=== PATIENT | male | born 1995 | race Caucasian/White ===

== ENCOUNTER 2023-03-31 20:01 | Emergency (ER) | payer SELFPAY ==
[2023-03-31] MEDS ORDERED: Sodium Chloride 0.9% 1,000 ML IV SCH (21:00)
[2023-03-31 21:32] LABS: BASOPHILS PERCENT AUTO 0.9 % (0.0-1.0); HEMATOCRIT 47.8 % (42.0-52.0); HEMOGLOBIN 15.7 gm/dl (14.0-18.0); IMMATURE GRAN ABSOLUTE AUTO 0.01 K/mm3 (0.00-0.05); IMMATURE GRAN PERCENT AUTO 0.3 % (0.0-0.4); LYMPHOCYTES ABSOLUTE AUTO 0.8 K/mm3 (1.0-4.8); LYMPHOCYTES PERCENT AUTO 24.7 % (24.0-44.0); MEAN CORPUSCULAR HGB CONC 32.8 g/dl (32.0-36.0); MEAN CORPUSCULAR VOLUME 88.4 fl (83.0-99.0); MEAN PLATELET VOLUME 9.4 fl (9.4-12.4); MONOCYTES ABSOLUTE AUTO 0.6 K/mm3 (0.0-0.8); MONOCYTES PERCENT AUTO 17.6 % (0.0-8.0); NEUTROPHILS ABSOLUTE AUTO 1.9 K/mm3 (1.8-7.7); NEUTROPHILS PERCENT AUTO 56.5 % (41.0-71.0); PLATELET COUNT,PLT 190 K/mm3 (150-400); RED BLOOD CELL COUNT 5.41 M/mm3 (4.52-5.90)
[2023-03-31 22:03] LABS: A/G RATIO 1.2 (1-2); ALANINE AMINOTRANSFERASE,ALT 12 U/L (16-63); ALBUMIN 4.2 g/dl (3.4-5.0); ALKALINE PHOSPHATASE 285 U/L (46-116); ASPARTATE AMNIOTRANSFERASE,AST 22 U/L (15-37); BILIRUBIN TOTAL 0.2 mg/dL (0.2-1.0); BLOOD UREA NITROGEN,BUN 9 mg/dL (7-18); BUN/CREATININE RATIO 11.3 (14-18); CALCIUM 8.7 mg/dL (8.5-10.1); CARBON DIOXIDE,CO2 21 mEq/L (21-32); CHLORIDE,CL 102 mEq/L (98-107); CREATININE 0.8 mg/dL (0.7-1.3); EST CRCL DRUG DOSING (CG) 133.48 mL/min; ESTIMATED GFR 124 mL/min (>60); GLUCOSE RANDOM 90 mg/dL (70-99); PROTEIN TOTAL,TP 7.7 g/dl (6.4-8.2); SODIUM,NA 139 mEq/L (136-145); T4 FREE 1.18 ng/dL (0.76-1.46)
[2023-03-31 22:15] LABS: INFLUENZA A NAA NEGATIVE (NEGATIVE); RESPIRATORY SYNCYTIAL VIR NAA NEGATIVE (NEGATIVE)
[2023-03-31 22:24] LABS: TSH < 0.007 uIU/mL (0.358-3.74)
[2023-03-31 22:31] LABS: CORONAVIRUS COVID-19 NAA POSITIVE (NEGATIVE)
[2023-03-31] MEDS ORDERED: Acetaminophen 325 MG Tab PO ONE (22:49)
== END 2023-04-01 01:02 | disposition home or self-care (01) ==
LOC: JD.ED 20:01
DX: U07.1 COVID-19 (principal); R74.8 Abnormal levels of other serum enzymes; F17.210 Nicotine dependence, cigarettes, uncomplicated
CPT/HCPCS: 0241U; 36415; 80053; 84439; 84443; 85025; 87651-QW; 96360; 99283-25; A9270-GY; J7030

== ENCOUNTER 2023-04-27 19:12 | Emergency (ER) | payer SELFPAY ==
[2023-04-27] MEDS ORDERED: methylPREDNISolone Sodium Succinate 125 MG/2 ML SDV IVPUSH ONE (19:18)
[2023-04-27] MEDS ORDERED: EPINEPHrine 1 MG/ML SDV SUBCUT ONE (19:18)
[2023-04-27] MEDS ORDERED: Sodium Chloride 0.9% 2,000 ML IV ONE (19:25)
[2023-04-27 19:29] LABS: BASOPHILS ABSOLUTE AUTO 0.1 K/mm3 (0.0-0.2); BASOPHILS PERCENT AUTO 0.4 % (0.0-1.0); EOSINOPHILS PERCENT AUTO 0.1 % (0.0-6.0); HEMATOCRIT 44.6 % (42.0-52.0); HEMOGLOBIN 15.3 gm/dl (14.0-18.0); IMMATURE GRAN ABSOLUTE AUTO 0.08 K/mm3 (0.00-0.05); IMMATURE GRAN PERCENT AUTO 0.5 % (0.0-0.4); LYMPHOCYTES ABSOLUTE AUTO 1.5 K/mm3 (1.0-4.8); LYMPHOCYTES PERCENT AUTO 8.9 % (24.0-44.0); MEAN CORPUSCULAR HEMOGLOBIN 28.7 pg (28.0-32.0); MEAN CORPUSCULAR HGB CONC 34.3 g/dl (32.0-36.0); MEAN CORPUSCULAR VOLUME 83.7 fl (83.0-99.0); MEAN PLATELET VOLUME 9.4 fl (9.4-12.4); MONOCYTES PERCENT AUTO 11.9 % (0.0-8.0); NEUTROPHILS ABSOLUTE AUTO 13.1 K/mm3 (1.8-7.7); NEUTROPHILS PERCENT AUTO 78.2 % (41.0-71.0); PLATELET COUNT,PLT 212 K/mm3 (150-400); RED BLOOD CELL COUNT 5.33 M/mm3 (4.52-5.90)
[2023-04-27] MEDS ORDERED: Lidocaine 1% 10 ML MDV INJECT ONE (19:30)
[2023-04-27] MEDS: Sodium Chloride 0.9% 10 ML Syringe FLUSH PRN ×2 (19:33→22:34)
[2023-04-27] MEDS ORDERED: Sodium Chloride 0.9% 10 ML Syringe FLUSH ONE (19:47)
[2023-04-27] MEDS ORDERED: Iopamidol 612 MG/ML 100 ML Bottle IVPUSH ONE (19:47)
[2023-04-27] MEDS ORDERED: Levofloxacin/Dextrose 5%-Water 750 MG in Premix Bag 1 BAG IV ONE (19:51)
[2023-04-27 19:52] LABS: INR 1.46; PROTHROMBIN TIME 15.2 SECONDS (9.7-12.0)
[2023-04-27 19:54] LABS: A/G RATIO 0.8 (1-2); ALBUMIN 3.5 g/dl (3.4-5.0); ANION GAP 21.5 (5-15); BILIRUBIN TOTAL 0.6 mg/dL (0.2-1.0); BUN/CREATININE RATIO 11.3 (14-18); CALCIUM 9.1 mg/dL (8.5-10.1); CREATININE 0.8 mg/dL (0.7-1.3); EST CRCL DRUG DOSING (CG) 152.24 mL/min; MAGNESIUM 1.6 mg/dL (1.8-2.4); POTASSIUM,K 3.5 mEq/L (3.5-5.1); PROTEIN TOTAL,TP 8.1 g/dl (6.4-8.2)
[2023-04-27] MEDS ORDERED: Sodium Chloride 0.9% Inhalation Soln 3 ML Neb INH PRN (19:55)
[2023-04-27] MEDS ORDERED: Racepinephrine 2.25% 0.5 ML Neb Soln NEB ONE (19:55)
[2023-04-27] MEDS ORDERED: Lidocaine 4% Top Soln 50 ML Bottle MUCMEM ONE (20:08)
[2023-04-27 20:12] LABS: C-REACTIVE PROTEIN 31.6 mg/dL (<1.0)
[2023-04-27] MEDS ORDERED: Etomidate 2 MG/ML 20 ML SDV IVPUSH ONE ×2 (20:33→20:50)
[2023-04-27] MEDS ORDERED: Midazolam 1 MG/ML 5 ML SDV IVPUSH ONE ×2 (20:34→20:50)
[2023-04-27] MEDS ORDERED: fentaNYL 100 MCG/2 ML SDV IVPUSH ONE ×2 (20:35→20:57)
[2023-04-27] MEDS ORDERED: Succinylcholine 200 MG/10 ML MDV IVPUSH SCH (20:45)
[2023-04-27 20:52] LABS: TSH < 0.007 uIU/mL (0.358-3.74)
[2023-04-27] MEDS ORDERED: propofoL 100 ML ONE (20:57)
[2023-04-27] MEDS ORDERED: fentaNYL 2,500 MCG in Sodium Chloride 0.9% 200 ML IV SCH (21:00)
[2023-04-27 21:14] LABS: T4 FREE 2.47 ng/dL (0.76-1.46)
[2023-04-27] MEDS: propofoL 100 ML IV SCH ×2 (21:22→23:45)
[2023-04-27 21:27] LABS: CORONAVIRUS COVID-19 NAA NEGATIVE (NEGATIVE); INFLUENZA A NAA NEGATIVE (NEGATIVE); RESPIRATORY SYNCYTIAL VIR NAA NEGATIVE (NEGATIVE)
[2023-04-27] MEDS ORDERED: dexmedeTOMIDine HCl 200 MCG/2 ML SDV ONE (21:30)
[2023-04-27 22:24] LABS: PCO2 ARTERIAL 46.8 mmHg (35.0-45.0)
[2023-04-27 22:25] LABS: BASE EXCESS ARTERIAL -4.9 (-2-2.0); BICARBONATE,ARTERIAL 21.4 meq/L (22.0-26.0); O2 SATURATION ARTERIAL 94.4 % (96.0-97.0)
[2023-04-27] MEDS ORDERED: Clindamycin Phosphate in D5W 900 MG in Premix Bag 1 BAG IV ONE ×2 (22:35)
[2023-04-27] MEDS ORDERED: Benzocaine 20% Topical Spray UD MUCMEM ONE (23:12)
[2023-04-27] MEDS ORDERED: Sodium Chloride 0.9% 1,000 ML IV SCH (23:45)
== END 2023-04-28 00:51 ==
LOC: JD.ED 19:12
DX: A41.9 Sepsis, unspecified organism (principal); J03.90 Acute tonsillitis, unspecified; E86.0 Dehydration; J98.8 Other specified respiratory disorders; Z88.0 Allergy status to penicillin; Z20.822 Contact with and (suspected) exposure to COVID-19
CPT/HCPCS: 0241U; 31500; 36415; 36600; 43752; 51702; 70491; 71045; 80053; 82803; 83605; 83735; 84439; 84443; 85025; 85610; 86140; 87040; 87651; 96361; 96365; 96375; 99285; A9270; J0171; J0330; J1956; J2250; J2704; J2930; J3010; J3490; J7030; J7050; Q9967